=== PATIENT | female | born 1975 | race American Indian/Alaskan Native ===

== ENCOUNTER 2021-03-05 08:03 | Emergency (ER) | payer SELFPAY ==
[2021-03-05 08:34] VITALS: BP 116/79
--- NOTE | 2021-03-07 10:26 | Electrocardiograph Report ---
[facility] Test Date: 2021-03-05 Test Time: 08:45:50 Pat Name: MIGUEL MURPHY Department: Room: Gender: F Advertising Sales Assistant: ABDIAZIZ : 1975 Requested By: CANDY DE LA O Order Number: [id number] Reading MD: Boby Cisneros Measurements Intervals [place] Rate: 80 P: 75 NC: 130 QRS: 20 QRSD: 83 T: 53 QT: 401 QTc: 464 Interpretive Statements Sinus rhythm No previous ECG available for comparison Electronically Signed On 03-07-2021 10:26:07 EDT by Boby Cisneros
== END 2021-03-05 09:33 | disposition left against medical advice (07) ==
LOC: ED 08:03
DX: M54.2 Cervicalgia (principal); M54.5 Low back pain; M79.602 Pain in left arm; Z53.21 Procedure and treatment not carried out due to patient leaving prior to being seen by health care provider
CPT/HCPCS: 93005